=== PATIENT | male | born 1990 | race Caucasian/White ===

== ENCOUNTER 2017-12-20 08:33 | Emergency (ER) | payer OTHER ==
[~2017-12-20] VITALS: Ht 185.4 cm; Wt 65.8 kg
[2017-12-20] MEDS ORDERED: NORCO 5-325 TA1 EACH PO (09:38)
[2017-12-20] MEDS ORDERED: AUGMENTIN 875-1 EACH PO (09:38)
== END 2017-12-20 09:49 | disposition home or self-care (01) ==
LOC: ED 08:33
PROC: 0HQ1XZZ Repair Face Skin, External Approach (ICD-10-PCS; principal; 2017-12-20)
DX: S01.551A Open bite of lip, initial encounter (principal); F17.200 Nicotine dependence, unspecified, uncomplicated; W54.0XXA Bitten by dog, initial encounter
CPT/HCPCS: 12052; 99283

== ENCOUNTER 2017-12-23 13:50 | Emergency (ER) | payer OTHER ==
[~2017-12-23] VITALS: Ht 185.4 cm; Wt 65.8 kg
[~2017-12-23 13:50] MED LIST: AUGMENTIN 875-1 EACH PO; NORCO 5-325 TA1 EACH PO
== END 2017-12-23 14:26 | disposition home or self-care (01) ==
LOC: ED 13:50
DX: S01.551D Open bite of lip, subsequent encounter (principal); F17.200 Nicotine dependence, unspecified, uncomplicated; W54.0XXD Bitten by dog, subsequent encounter
CPT/HCPCS: 99282

== ENCOUNTER 2018-05-01 16:59 | Emergency (ER) | payer OTHER ==
[~2018-05-01] VITALS: Ht 185.4 cm; Wt 65.8 kg
== END 2018-05-01 17:15 | disposition home or self-care (01) ==
LOC: ED 16:59
DX: M79.671 Pain in right foot (principal)